=== PATIENT | male | born 1960 | race Caucasian/White ===

== ENCOUNTER 2021-05-21 14:18 | Emergency (ER) | payer OTHER ==
[~2021-05-21] VITALS: Ht 162.6 cm; Wt 89.8 kg
[2021-05-21 15:07] VITALS: BP 182/93
[2021-05-21] MEDS ORDERED: KETOROLAC 30 MG/ML VIAL IM ONE (16:15)
[2021-05-21] MEDS ORDERED: ACET-8386 PO (16:27)
--- NOTE | 2021-05-21 16:40 | NUR ---
60 y/o male, c/o left wrist pain, pt states he fell down on wrist 1 hour prior to arrival. site has some redness and swelling, no visible abrasion, lac or deformity. denies loc or syncope. pt states 8/10 sharp pain. pmh: asthma, htn nka med: vitamin one a day
--- NOTE | 2021-05-21 16:45 | NUR ---
PER [facility] PT LEFT ARM WAS PLACE IN A SPLINT AND PMCS WAS ASSESSED BEFORE AND AFTER ALL WNL. [facility] ASSESSED SPLINT AND APPROVED.
[2021-05-21 17:05] VITALS: BP 182/93
--- NOTE | 2021-05-21 17:05 | NUR ---
Patient discharged with v/s stable. Written and verbal after care instructions given and explained. Patient alert, oriented and verbalized understanding of instructions. Ambulatory with steady gait. All questions addressed prior to discharge. ID band removed. Patient advised to follow up with PMD. Rx of HYDROCODONE-ACETAMINOPHEN given. Patient educated on indication of medication including possible reaction and side effects. Opportunity to ask questions provided and answered.
== END 2021-05-21 17:05 | disposition home or self-care (01) ==
LOC: MED 14:18
DX: S52.592A Other fractures of lower end of left radius, initial encounter for closed fracture (principal); S52.612A Displaced fracture of left ulna styloid process, initial encounter for closed fracture; Z98.890 Other specified postprocedural states; W18.30XA Fall on same level, unspecified, initial encounter; Y93.89 Activity, other specified; Y92.89 Other specified places as the place of occurrence of the external cause; Y99.8 Other external cause status
CPT/HCPCS: 29125; 73110; 73130; 96372; 99284; J1885